=== PATIENT | male | born 1940 | race Caucasian/White ===

== ENCOUNTER 2021-11-08 10:45 | Outpatient (CLI) | payer MEDICARE | END 2021-11-08 10:46 | disposition home or self-care (01) | LOC: BICULT 10:45 | PROVIDERS: ATTEND Internal Medicine Nephrology | DX: N18.30 Chronic kidney disease, stage 3 unspecified (principal); N28.1 Cyst of kidney, acquired; N32.3 Diverticulum of bladder | CPT/HCPCS: 76770 ==